=== PATIENT | female | born 1965 | race Caucasian/White ===

== ENCOUNTER → 2021-12-25 | Outpatient (CLI) | payer MEDICARE | LOC: KOH-I 13:55 | DX: R07.81 Pleurodynia (principal) | CPT/HCPCS: 71046; 71100 ==

== ENCOUNTER → 2022-01-09 | Outpatient (CLI) | payer MEDICARE | LOC: KOH-I 13:51 | DX: R55 Syncope and collapse (principal); I65.23 Occlusion and stenosis of bilateral carotid arteries | CPT/HCPCS: 93880 ==